=== PATIENT | female | born 1980 | race Caucasian/White ===

== ENCOUNTER 2016-12-11 19:47 | Emergency (ER) | payer SELFPAY ==
[2016-12-11 20:37] LABS: URINE SOURCE CLEAN CATCH
[2016-12-11 20:55] LABS: URINE APPEARANCE CLOUDY; URINE COLOR BROWN; URINE GLUCOSE NORM (NEG); URINE KETONE NEG (NEG); URINE LEUKOCYTE ESTERASE NEG (NEG); URINE NITRATE POS (NEG); URINE PH 6.5 (5-8); URINE PROTEIN 2+ (NEG)
[2016-12-11 20:56] LABS: URINE BILIRUBIN NEG (NEG); URINE BLOOD 2+ (NEG); URINE UROBILINOGEN 8 MG/DL (NEG)
[2016-12-11 20:59] LABS: CULTURE INDICATED? YES; URINE BACTERIA AUWI 1+ (NEGATIVE); URINE CRYSTALS CALCIUM OXALATE /[HPF]; URINE SQUAMOUS EPITHELIAL CELL FEW /[HPF]
== END 2016-12-11 21:15 | disposition home or self-care (01) ==
LOC: CED 19:47 → CFTX 19:47
PROVIDERS: Nurse Practitioner Family
DX: N39.0 Urinary tract infection, site not specified (principal); F17.210 Nicotine dependence, cigarettes, uncomplicated; Z88.0 Allergy status to penicillin
CPT/HCPCS: 81003; 84703; 87086; 99283